=== PATIENT | male | born 1975 | race Caucasian/White ===

== ENCOUNTER 2020-06-10 08:52 | Day surgery (SDC) | payer OTHER ==
[2020-06-07 15:28] LABS: PLATELET COUNT 234 x10^3mcL (130-400)
--- NOTE | 2020-06-07 15:37 | NUR ---
PATIENT STEPPED ON A NAIL TODAY ON HIS RIGHT FOOT, CALLED PRIMARY PHYSICIAN AND GOT APPT FOR A TETANUS SHOT ON 06/08/20.
[2020-06-07 15:44] LABS: ALBUMIN 4.2 g/dL (3.4-5.0); ALKALINE PHOSPHATASE 75 U/L (46-116); ALT/SGPT 26 U/L (16-63); AST/SGOT 23 U/L (15-37); BILIRUBIN TOTAL 0.4 mg/dL (0.20-1.00); CALCIUM 9.2 mg/dL (8.5-10.1); CHLORIDE SERUM 101 mmol/L (98-107); CREATININE SERUM 0.9 mg/dL (0.7-1.3); GFR1 > 60 mL/min; GLUCOSE SERUM 98 mg/dL (74-106); POTASSIUM SERUM 4.8 mmol/L (3.5-5.1); SODIUM SERUM 138 mmol/L (136-145); TOTAL PROTEIN, SERUM 8.1 g/dL (6.4-8.2)
--- NOTE | 2020-06-07 16:20 | NUR ---
FAXED RESULT OF EKG TO DR MATHEWS OFFICE AND GAVE ANESTHESIA A COPY ALSO.
--- NOTE | 2020-06-08 14:16 | NUR ---
EKG SENT TO ANESTHESIA FOR REVIEW. EKG OKAY FOR SURGERY 12-3-20 PER ANESTHESIA.
[~2020-06-10] VITALS: Ht 188 cm; Wt 80.7 kg
[2020-06-10 09:22] VITALS: BP 127/74
[2020-06-10 15:05] VITALS: BP 124/80
== END 2020-06-10 14:05 | disposition home or self-care (01) ==
LOC: DS 08:52 → OR 11:30 → DS 14:05
PROVIDERS: ATTEND Surgery
DX: K43.2 Incisional hernia without obstruction or gangrene (principal); D64.9 Anemia, unspecified; Z91.010 Allergy to peanuts; Z91.013 Allergy to seafood; Z91.02 Food additives allergy status
CPT/HCPCS: J0690; J1170; J3010; J3490